=== PATIENT | male | born 1990 | race Native Hawaiian/Other Pacific Islander ===

== ENCOUNTER 2018-02-10 13:15 | Outpatient (CLI) | payer OTHER | END 2018-02-10 13:19 | disposition short-term general hospital (02) | LOC: AMB 13:15 | DX: G40.89 Other seizures (principal); E16.1 Other hypoglycemia | CPT/HCPCS: A0425; A0427 ==

== ENCOUNTER 2018-02-10 13:20 | Emergency (ER) | payer OTHER ==
[~2018-02-10] VITALS: Ht 172.7 cm; Wt 59.0 kg
[2018-02-10 13:53] LABS: PLATELET COUNT 344 K/uL (142-355)
[2018-02-10 14:02] LABS: POTASSIUM 3.1 mmol/L (3.6-5.2)
[2018-02-10 14:52] VITALS: BP 133/69; TEMP 97
== END 2018-02-10 14:54 | disposition home or self-care (01) ==
LOC: ED 13:20
PROVIDERS: Internal Medicine
DX: R56.9 Unspecified convulsions (principal); E11.9 Type 2 diabetes mellitus without complications
CPT/HCPCS: 80053; 85027; 99282

== ENCOUNTER 2018-03-20 15:51 | Emergency (ER) | payer OTHER ==
[~2018-03-20] VITALS: Ht 172.7 cm; Wt 63.5 kg
[2018-03-20 17:13] LABS: PLATELET COUNT 293 K/uL (142-355)
[2018-03-20 17:26] LABS: POTASSIUM 4.2 mmol/L (3.6-5.2)
[2018-03-20 18:50] VITALS: BP 118/69; TEMP 97.2
== END 2018-03-20 18:50 | disposition home or self-care (01) ==
LOC: ED 15:51
PROVIDERS: Family Medicine
DX: E11.9 Type 2 diabetes mellitus without complications (principal)
CPT/HCPCS: 80053; 81000; 85027; 99283

== ENCOUNTER 2018-03-22 22:35 | Emergency (ER) | payer OTHER ==
[~2018-03-22] VITALS: Ht 172.7 cm; Wt 63.5 kg
[2018-03-22 22:48] VITALS: BP 166/103; TEMP 98.6
[2018-03-22] MEDS ORDERED: NOVOLOG100 UNIT/M SC ×2 (22:49→22:50)
== END 2018-03-22 23:13 | disposition home or self-care (01) ==
LOC: ED 22:35
DX: K42.9 Umbilical hernia without obstruction or gangrene (principal); M54.9 Dorsalgia, unspecified; I10 Essential (primary) hypertension
CPT/HCPCS: 99281

== ENCOUNTER 2018-03-26 16:53 | Outpatient (CLI) | payer OTHER ==
[~2018-03-26 16:53] MED LIST: NOVOLOG100 UNIT/M SC
[2018-03-26] MEDS ORDERED: LANTUS100 UNIT/M SC (17:20)
[2018-03-26] MEDS ORDERED: LISI10TA11 PO (17:20)
[2018-03-26] MEDS ORDERED: NOVOLIN R100 UNIT/1 SC (17:21)
== END 2018-03-26 16:57 | disposition short-term general hospital (02) ==
LOC: AMB 16:53
DX: E16.1 Other hypoglycemia (principal)
CPT/HCPCS: A0425; A0427

== ENCOUNTER 2018-03-26 16:59 | Emergency (ER) | payer OTHER ==
[~2018-03-26] VITALS: Ht 172.7 cm; Wt 63.5 kg
[2018-03-26] MEDS ORDERED: LANTUS100 UNIT/M SC (17:20)
[2018-03-26] MEDS ORDERED: LISI10TA11 PO (17:20)
[2018-03-26] MEDS ORDERED: NOVOLIN R100 UNIT/1 SC (17:21)
[2018-03-26 17:47] LABS: PLATELET COUNT 291 K/uL (142-355)
[2018-03-26 18:08] LABS: POTASSIUM 3.4 mmol/L (3.6-5.2)
[2018-03-26 20:13] VITALS: BP 120/79; TEMP 98.3
== END 2018-03-26 20:16 | disposition home or self-care (01) ==
LOC: ED 16:59
PROVIDERS: Emergency Medicine
DX: E11.649 Type 2 diabetes mellitus with hypoglycemia without coma (principal); Z79.4 Long term (current) use of insulin
CPT/HCPCS: 36415; 80053; 82962; 85027; 96360; 99284

== ENCOUNTER 2018-03-27 10:52 | Emergency (ER) | payer OTHER ==
[~2018-03-27] VITALS: Ht 170.2 cm; Wt 63.5 kg
[~2018-03-27 10:52] MED LIST changes: +LANTUS100 UNIT/M SC; +LISI10TA11 PO; +NOVOLIN R100 UNIT/1 SC
[2018-03-27 12:05] LABS: PLATELET COUNT 286 K/uL (142-355)
[2018-03-27 12:16] LABS: POTASSIUM 3.8 mmol/L (3.6-5.2)
[2018-03-29 03:25] VITALS: BP 110/68; TEMP 98.5
== END 2018-03-29 03:27 | disposition other institution (70) ==
LOC: ED 10:52
PROVIDERS: Family Medicine
DX: R44.3 Hallucinations, unspecified (principal); F20.9 Schizophrenia, unspecified
CPT/HCPCS: 36415; 80053; 80307; 80329; 81000; 82962; 85027; 96372; 99285; J1815

== ENCOUNTER 2018-06-17 11:26 | Inpatient (IN) | payer OTHER ==
[~2018-06-17] VITALS: Ht 170.2 cm; Wt 55.8 kg
[2018-06-17] VITALS (13 sets, daily range): BP systolic 97–118; BP diastolic 44–74; TEMP 97.3–98.9; Ht 170.2 cm; Wt 55.8 kg
[2018-06-17 12:26] LABS: PLATELET COUNT 351 K/uL (142-355)
[2018-06-17 12:40] LABS: POTASSIUM 5.8 mmol/L (3.6-5.2)
[2018-06-17 17:12] LABS: POTASSIUM 4.3 mmol/L (3.6-5.2)
[2018-06-17 21:07] LABS: POTASSIUM 4.6 mmol/L (3.6-5.2)
[2018-06-18] VITALS (19 sets, daily range): BP systolic 87–103; BP diastolic 38–63; TEMP 97.6–98.3
[2018-06-18 02:29] LABS: POTASSIUM 4.4 mmol/L (3.6-5.2)
[2018-06-18 05:41] LABS: PLATELET COUNT 272 K/uL (142-355)
[2018-06-18] MEDS ORDERED: INSULIN GLULISINE SC (09:47)
[2018-06-18] MEDS ORDERED: [UNRECOGNIZED DRUG - OTHER] PO (09:49)
[2018-06-18] MEDS ORDERED: ASPIRIN325 M1 PO (09:51)
[2018-06-18 14:00] LABS: POTASSIUM 4.5 mmol/L (3.6-5.2)
[2018-06-18 19:38] LABS: POTASSIUM 5.4 mmol/L (3.6-5.2)
[2018-06-18] MEDS ORDERED: INSU100I2 SC (22:00)
[2018-06-19 00:07] VITALS: BP 100/58; TEMP 98.1
[2018-06-19 04:00] VITALS: BP 100/62; TEMP 97.6
[2018-06-19 08:00] VITALS: BP 101/65; TEMP 97.8
[2018-06-19 11:24] LABS: PLATELET COUNT 219 K/uL (142-355)
[2018-06-19 12:00] VITALS: BP 107/71; TEMP 98.2
== END 2018-06-19 14:25 | disposition home or self-care (01) | DRG 639 ==
LOC: ED 11:26 → ICU 15:05 → MED/SURG 06-18 14:35
PROVIDERS: Emergency Medicine; ADMIT Family Medicine
DX: E10.10 Type 1 diabetes mellitus with ketoacidosis without coma (principal); Z79.4 Long term (current) use of insulin; Z96.41 Presence of insulin pump (external) (internal); I10 Essential (primary) hypertension; Z79.01 Long term (current) use of anticoagulants
CPT/HCPCS: 36415; 36600; 80048; 80053; 81000; 81002; 82150; 82805; 83036; 83690; 83735; 85027; 93005; 96361; 96365; 96375; 99285; J1815; J2405; J7120

== ENCOUNTER 2018-07-13 17:10 | Emergency (ER) | payer OTHER ==
[~2018-07-13] VITALS: Ht 170.2 cm; Wt 55.8 kg
[~2018-07-13 17:10] MED LIST changes: +ASPIRIN325 M1 PO; +INSU100I2 SC; +INSULIN GLULISINE SC; +[UNRECOGNIZED DRUG - OTHER] PO
[2018-07-13 18:15] VITALS: BP 126/73; TEMP 98.1
== END 2018-07-13 18:15 | disposition home or self-care (01) ==
LOC: ED 17:10
DX: E10.649 Type 1 diabetes mellitus with hypoglycemia without coma (principal); Z79.4 Long term (current) use of insulin
CPT/HCPCS: 82962; 99282

== ENCOUNTER 2018-07-15 17:05 | Outpatient (CLI) | payer OTHER | END 2018-07-15 17:07 | disposition short-term general hospital (02) | LOC: AMB 17:05 | DX: E10.649 Type 1 diabetes mellitus with hypoglycemia without coma (principal); R41.82 Altered mental status, unspecified | CPT/HCPCS: A0425; A0427 ==

== ENCOUNTER 2018-08-31 16:14 | Emergency (ER) | payer OTHER ==
[~2018-08-31] VITALS: Ht 172.7 cm; Wt 64.4 kg
[2018-08-31 18:21] LABS: PLATELET COUNT 327 K/uL (142-355)
[2018-08-31 18:32] LABS: POTASSIUM 3.8 mmol/L (3.6-5.2)
[2018-08-31 19:44] VITALS: BP 115/70; TEMP 98.2
== END 2018-08-31 19:45 | disposition home or self-care (01) ==
LOC: ED 16:14
PROVIDERS: Family Medicine
DX: E11.649 Type 2 diabetes mellitus with hypoglycemia without coma (principal)
CPT/HCPCS: 36415; 80053; 81000; 85027; 87086; 87088; 99283

== ENCOUNTER → 2018-09-11 21:50 | Outpatient (CLI) | payer OTHER | END | disposition home or self-care (01) | LOC: AMB 21:50 | DX: Z04.3 Encounter for examination and observation following other accident (principal) ==

== ENCOUNTER 2018-09-11 23:27 | Emergency (ER) | payer OTHER ==
[~2018-09-11] VITALS: Ht 172.7 cm; Wt 64.4 kg
[2018-09-11 23:41] VITALS: BP 120/65; TEMP 98.1
== END 2018-09-12 00:15 | disposition home or self-care (01) ==
LOC: ED 23:27
DX: R51 Headache (principal); V03.90XA Pedestrian on foot injured in collision with car, pick-up truck or van, unspecified whether traffic or nontraffic accident, initial encounter; Y93.89 Activity, other specified; Y92.89 Other specified places as the place of occurrence of the external cause
CPT/HCPCS: 99281

== ENCOUNTER 2018-09-17 15:59 | Outpatient (CLI) | payer OTHER | END 2018-09-17 16:02 | disposition short-term general hospital (02) | LOC: AMB 15:59 | DX: R41.82 Altered mental status, unspecified (principal); R53.83 Other fatigue; E16.2 Hypoglycemia, unspecified | CPT/HCPCS: A0425; A0427 ==

== ENCOUNTER 2018-09-17 16:06 | Emergency (ER) | payer OTHER ==
[~2018-09-17] VITALS: Ht 172.7 cm; Wt 63.5 kg
[2018-09-17 17:35] VITALS: BP 103/65; TEMP 97.8
== END 2018-09-17 17:35 | disposition home or self-care (01) ==
LOC: ED 16:06
DX: E10.649 Type 1 diabetes mellitus with hypoglycemia without coma (principal); Z79.4 Long term (current) use of insulin
CPT/HCPCS: 82962; 99283

== ENCOUNTER 2018-09-18 12:03 | Outpatient (CLI) | payer OTHER | END 2018-09-18 12:20 | disposition short-term general hospital (02) | LOC: AMB 12:03 | DX: R41.82 Altered mental status, unspecified (principal); E11.649 Type 2 diabetes mellitus with hypoglycemia without coma | CPT/HCPCS: A0425; A0427 ==

== ENCOUNTER 2018-09-18 12:26 | Emergency (ER) | payer OTHER ==
[~2018-09-18] VITALS: Ht 172.7 cm; Wt 63.5 kg
[2018-09-18 12:30] VITALS: TEMP 97.7
[2018-09-18 12:56] LABS: PLATELET COUNT 233 K/uL (142-355)
[2018-09-18 13:02] LABS: POTASSIUM 3.3 mmol/L (3.6-5.2)
[2018-09-18 13:57] VITALS: BP 116/78
== END 2018-09-18 13:57 | disposition home or self-care (01) ==
LOC: ED 12:26
PROVIDERS: Family Medicine
DX: E11.649 Type 2 diabetes mellitus with hypoglycemia without coma (principal); Z79.4 Long term (current) use of insulin; E87.6 Hypokalemia
CPT/HCPCS: 36415; 80053; 80307; 81000; 85027; 96365; 99284

== ENCOUNTER 2018-09-22 10:59 | Emergency (ER) | payer OTHER ==
[~2018-09-22] VITALS: Ht 172.7 cm; Wt 63.5 kg
[2018-09-22 11:00] VITALS: TEMP 97.5
[2018-09-22 11:24] LABS: PLATELET COUNT 270 K/uL (142-355)
[2018-09-22 11:43] LABS: POTASSIUM 3.5 mmol/L (3.6-5.2); SODIUM 144 mmol/L (136-145)
[2018-09-22 11:52] VITALS: BP 122/83
== END 2018-09-22 13:00 | disposition home or self-care (01) ==
LOC: ED 10:59
PROVIDERS: Emergency Medicine
DX: E11.649 Type 2 diabetes mellitus with hypoglycemia without coma (principal); Z79.4 Long term (current) use of insulin; R56.9 Unspecified convulsions
CPT/HCPCS: 36415; 80053; 80307; 81000; 82962; 83036; 83735; 84484; 85027; 93005; 96365; 96375; 99284; J2405; J7060

== ENCOUNTER 2018-10-01 10:41 | Emergency (ER) | payer OTHER ==
[~2018-10-01] VITALS: Ht 172.7 cm; Wt 63.5 kg
[2018-10-01 10:42] VITALS: TEMP 98.1
[2018-10-01 13:00] VITALS: BP 116/68
== END 2018-10-01 14:02 | disposition home or self-care (01) ==
LOC: ED 10:41
DX: E10.649 Type 1 diabetes mellitus with hypoglycemia without coma (principal)
CPT/HCPCS: 36415; 82962; 96374; 96376; 99284; J7060

== ENCOUNTER 2018-10-09 00:26 | Emergency (ER) | payer OTHER | END 2018-10-09 00:55 | disposition home or self-care (01) | LOC: ED 00:26 | DX: M54.9 Dorsalgia, unspecified (principal) | CPT/HCPCS: 99281 ==

== ENCOUNTER 2020-02-11 08:44 | Emergency (ER) | payer OTHER ==
[~2020-02-11] VITALS: Ht 172.7 cm; Wt 63.5 kg
[2020-02-11 08:52] VITALS: TEMP 99
[2020-02-11 09:27] LABS: PLATELET COUNT 222 K/uL (142-355)
[2020-02-11 09:35] LABS: POTASSIUM 4.8 mmol/L (3.6-5.2)
[2020-02-11 11:36] VITALS: BP 112/68
== END 2020-02-11 11:37 | disposition home or self-care (01) ==
LOC: ED 08:44
PROVIDERS: Family Medicine
DX: E11.65 Type 2 diabetes mellitus with hyperglycemia (principal); Z79.4 Long term (current) use of insulin
CPT/HCPCS: 80053; 81000; 82962; 85027; 96360; 96372; 99284; J1815

== ENCOUNTER 2020-04-22 18:24 | Emergency (ER) | payer OTHER ==
[~2020-04-22] VITALS: Ht 172.7 cm; Wt 63.5 kg
[2020-04-22 19:28] VITALS: BP 117/64; TEMP 98.3
== END 2020-04-22 19:28 | disposition home or self-care (01) ==
LOC: ED 18:24
DX: K42.9 Umbilical hernia without obstruction or gangrene (principal)
CPT/HCPCS: 96372; 99282; 99283; J1885

== ENCOUNTER 2020-05-04 09:24 | Outpatient (CLI) | payer OTHER | END 2020-05-04 22:11 | disposition home or self-care (01) | LOC: LABW 09:24 | PROVIDERS: ATTEND Internal Medicine Endocrinology, Diabetes & Metabolism | DX: E10.65 Type 1 diabetes mellitus with hyperglycemia (principal); E78.5 Hyperlipidemia, unspecified; R00.0 Tachycardia, unspecified; E55.9 Vitamin D deficiency, unspecified | CPT/HCPCS: 36415; 82043; 82570; 82947; 83519; 84439; 84443; 84480; 84681; 86341 ==

== ENCOUNTER 2020-05-27 07:32 | Outpatient (CLI) | payer OTHER | END 2020-05-27 19:58 | disposition home or self-care (01) | LOC: CT 07:32 | PROVIDERS: ATTEND Student in an Organized Health Care Education/Training Program | DX: R10.9 Unspecified abdominal pain (principal); I10 Essential (primary) hypertension; E11.9 Type 2 diabetes mellitus without complications; F25.9 Schizoaffective disorder, unspecified | CPT/HCPCS: 36415; 82565; 84520; Q9963 ==

== ENCOUNTER 2020-06-18 10:59 | Outpatient (CLI) | payer OTHER | END 2020-06-18 19:26 | disposition home or self-care (01) | LOC: RAD 10:59 | PROVIDERS: ATTEND Nurse Practitioner Primary Care | DX: M54.5 Low back pain (principal); M54.6 Pain in thoracic spine ==

== ENCOUNTER 2021-09-01 13:58 | Outpatient (CLI) | payer OTHER | END 2021-09-01 18:57 | disposition home or self-care (01) | LOC: RAD 13:58 | PROVIDERS: ATTEND Nurse Practitioner Family | DX: K59.09 Other constipation (principal) ==

== ENCOUNTER 2021-10-23 23:43 | Emergency (ER) | payer OTHER ==
[~2021-10-23] VITALS: Ht 172.7 cm; Wt 61.2 kg
[2021-10-23 23:45] VITALS: BP 155/109; TEMP 98.3
== END 2021-10-24 00:09 | disposition home or self-care (01) ==
LOC: ED 23:43
DX: M54.89 Other dorsalgia (principal); F99 Mental disorder, not otherwise specified
CPT/HCPCS: 99281

== ENCOUNTER 2022-01-21 09:06 | Emergency (ER) | payer OTHER ==
[~2022-01-21] VITALS: Ht 172.7 cm; Wt 61.2 kg
[2022-01-21 09:14] VITALS: TEMP 97.6
[2022-01-21 09:41] VITALS: BP 128/75
== END 2022-01-21 09:44 | disposition home or self-care (01) ==
LOC: ED 09:06
DX: E10.649 Type 1 diabetes mellitus with hypoglycemia without coma (principal); Z79.4 Long term (current) use of insulin; Z59.48 Other specified lack of adequate food; T38.3X5A Adverse effect of insulin and oral hypoglycemic [antidiabetic] drugs, initial encounter; Y92.148 Other place in prison as the place of occurrence of the external cause
CPT/HCPCS: 82948; 99282

== ENCOUNTER 2022-02-11 22:55 | Observation (INO) | payer OTHER ==
[~2022-02-11] VITALS: Ht 172.7 cm; Wt 57.2 kg
[2022-02-11 22:55] VITALS: BP 107/66; TEMP 99.1
[2022-02-11 23:46] LABS: PLATELET COUNT 331 K/uL (142-355); POTASSIUM 3.1 mmol/L (3.6-5.2)
[2022-02-12] VITALS (13 sets, daily range): BP systolic 101–116; BP diastolic 51–70; TEMP 98.7–99; Ht 172.7 cm; Wt 57.2 kg
[2022-02-12 02:59] LABS: PARTIAL THROMBOPLASTIN TIME 25.6 SECONDS (24.5-33.6)
[2022-02-12 08:04] LABS: POTASSIUM 4.2 mmol/L (3.6-5.2)
[2022-02-12 08:33] LABS: PLATELET COUNT 252 K/uL (142-355)
[2022-02-12] MEDS ORDERED: PROAIR HFA INH (15:21)
[2022-02-12] MEDS ORDERED: INVEGA SUS234 MG/1.5 IM (15:22)
[2022-02-12] MEDS ORDERED: INSULIN LI100 UNIT/1 IM (15:32)
== END 2022-02-12 16:20 | disposition left against medical advice (07) ==
LOC: ED 22:55 → MED/SURG 02-12 03:12
PROVIDERS: ADMIT Emergency Medicine; ATTEND Internal Medicine Endocrinology, Diabetes & Metabolism
DX: E10.10 Type 1 diabetes mellitus with ketoacidosis without coma (principal); D72.828 Other elevated white blood cell count; N17.8 Other acute kidney failure; G40.802 Other epilepsy, not intractable, without status epilepticus; E16.1 Other hypoglycemia; M79.7 Fibromyalgia; F20.89 Other schizophrenia; Z79.4 Long term (current) use of insulin; Z96.41 Presence of insulin pump (external) (internal)
CPT/HCPCS: 36415; 80053; 80307; 81002; 82947; 82948; 85027; 85610; 85730; 87635; 93005; 96360; 96374; 96375; 99220; 99284; G0378; J1815; J2060; J7060; U0003

== ENCOUNTER 2022-02-12 21:30 | Emergency (ER) | payer OTHER ==
[~2022-02-12] VITALS: Ht 172.7 cm; Wt 57.2 kg
[~2022-02-12 21:30] MED LIST changes: +INSULIN LI100 UNIT/1 IM; +INVEGA SUS234 MG/1.5 IM; +PROAIR HFA INH
[2022-02-14 08:40] VITALS: BP 110/60; TEMP 98
== END 2022-02-14 11:55 | disposition other institution (70) ==
LOC: ED 21:30
DX: F30.8 Other manic episodes (principal); F20.89 Other schizophrenia
CPT/HCPCS: 99285; J1200; J1630; J1815; J2060

== ENCOUNTER 2022-03-15 11:11 | Emergency (ER) | payer OTHER ==
[~2022-03-15] VITALS: Ht 172.7 cm; Wt 63.5 kg
[2022-03-15 11:35] VITALS: TEMP 97.7
[2022-03-15 11:55] VITALS: BP 124/74
== END 2022-03-15 12:23 | disposition home or self-care (01) ==
LOC: ED 11:11
DX: K02.9 Dental caries, unspecified (principal)
CPT/HCPCS: 96372; 99281; 99283; J1885

== ENCOUNTER 2022-04-06 12:33 | Emergency (ER) | payer OTHER ==
[~2022-04-06] VITALS: Ht 172.7 cm; Wt 63.5 kg
[2022-04-06 12:36] VITALS: BP 144/94; TEMP 99.7
== END 2022-04-06 14:19 | disposition home or self-care (01) ==
LOC: ED 12:33
DX: T18.128A Food in esophagus causing other injury, initial encounter (principal); X58.XXXA Exposure to other specified factors, initial encounter; Y92.89 Other specified places as the place of occurrence of the external cause
CPT/HCPCS: 99282

== ENCOUNTER 2022-05-20 08:13 | Outpatient (CLI) | payer OTHER | END 2022-05-20 20:10 | disposition home or self-care (01) | LOC: RAD 08:13 | PROVIDERS: ATTEND Internal Medicine Endocrinology, Diabetes & Metabolism | DX: M54.2 Cervicalgia (principal); M54.6 Pain in thoracic spine; M54.59 Other low back pain ==

== ENCOUNTER 2022-11-25 04:24 | Outpatient (CLI) | payer OTHER ==
[2022-11-25 06:05] LABS: POTASSIUM 3.9 mmol/L (3.6-5.2)
== END 2022-11-25 18:51 | disposition home or self-care (01) ==
LOC: LABW 04:24
DX: E10.9 Type 1 diabetes mellitus without complications (principal)
CPT/HCPCS: 36415; 80053; 80061; 82043; 82570; 82607; 84436; 84443; 84479